=== PATIENT | male | born 1955 | race Hispanic/Latino ===

== ENCOUNTER → 2018-03-21 | Day surgery (SDC) | payer BC ==
[2018-03-18 10:42] VITALS: BMI 31.9
--- NOTE | 2018-03-18 23:48 | HP ---
DATE OF EXAM: <> REASON FOR ADMISSION: Left heart cath, possible angioplasty, abnormal stress test, preop evaluation for lung surgery. BRIEF CLINICAL HISTORY: A 62-year-old male with past medical history significant for COPD, history of degenerative joint disease, CA lung, hypertension, recently had abnormal stress test, for preop evaluation for lung resection, found to have abnormal stress test, so the patient is scheduled for elective cardiac cath, possible angioplasty. The patient denies any chest pain, shortness of breath or any palpitation. PAST MEDICAL HISTORY: Significant for COPD, hypertension, and hyperlipidemia. SOCIAL HISTORY: Used to smoke two packs a day for 30 years. Last he has cut down for half a pack. Now, the patient has stopped after he is diagnosed. Denies any history of alcohol abuse. CURRENT MEDICATIONS: The patient is taking Duo nebulizer treatment, Protonix 40 mg daily, losartan/hydrochlorothiazide combination 50/12.5 mg daily. ALLERGIES: NO KNOWN DRUG ALLERGY. REVIEW OF SYSTEMS: As per HPI. PHYSICAL EXAMINATION: As follows: VITAL SIGNS: Height of the patient is 5 feet 6 inches, weight of the patient 198 pounds, body mass index 32 kg/m2. Blood pressure 140/90, heart rate 68. HEENT: PERRLA intact. NECK: Supple. No carotid bruit or thyromegaly. CHEST: Clear to auscultation. HEART: S1, S2 regular. ABDOMEN: Soft. EXTREMITIES: Clubbing and cyanosis negative. RECENT CARDIAC WORKUP FOLLOWS: The patient had a stress test dated 03/16/2018, that revealed abnormal myocardial perfusion study, partially reversible apical defect, suspicious for ischemia. The patient had echocardiography on 03/10/2018 that showed ejection fraction 45%, diastolic dysfunction, mild mitral regurgitation, mild tricuspid regurgitation. By stress test, ejection fraction 47%, by echo 45%. IMPRESSION: A 62-year-old male with past medical history significant for hypertension, chronic obstructive pulmonary disease, lung cancer, ex-smoker. Preoperative evaluation, underwent a stress test which was abnormal, cardiomyopathy and abnormal suggestive of ischemia, inferior defect. So, the patient is scheduled for elective cardiac catheterization, possible angioplasty. We will load aspirin and Plavix. Should the patient need a stent, we will put bare-metal stent because the patient needs lung surgery. Further recommendation after the cardiac catheterization. We will follow with you. Thank you for providing us the opportunity in taking care of patient, Garrett Solitario. Katina Momin MD
[~2018-03-21] MED LIST: Bacitracin 500 Units/gm Oint Foilpak UD ONE; Bacitracin 500 Units/gm Oint Foilpak UD TOP ONE; Eptifibatide 20 mg/10mL Inj IVP ONE; Iodixanol 320 MG/ML 100 ML BOTTLE IV ONE; Iodixanol 320 MG/ML 200 ML BOTTLE IV ONE; Iohexol 350mgl/ml 50 ML ONE; Lidocaine 2% Inj (20ml) ONE; Midazolam 2 MG/2 ML VIAL ONE; Nitroglycerin 50mg in D5W 50 MG/250 ML BOTTLE IV ONE; Sodium Chloride 0.9% 1,000 ML IV SCH; Verapamil 2 ML ONE
[2018-03-21 08:16] LABS: BASO # 0.04 K/mm3 (0.0-2.0); BASO % 0.4 % (0.0-3.0); EOS # 0.5 (0.0-0.7); EOS % 4.5 % (1.5-5.0); GRAN # 6.87 (1.4-6.5); GRAN % 63.8 % (50.0-68.0); LYMPH # 2.8 (1.2-3.4); MEAN CELL VOLUME 94.9 fl (80.0-105.0); MEAN CORPUSCULAR HEMOGLOBIN 31.1 pg (25.0-35.0); MEAN CORPUSCULAR HGB CONC 32.8 g/dl (31.0-37.0); MEAN PLATELET VOLUME 9.2 fl (7.0-11.0); MONO # 0.6 (0.1-0.6); MONO % 5.3 % (1.0-6.0); RBC 4.5 10^6/uL (3.5-6.1); RED CELL DISTRIBUTION WIDTH 12.9 % (11.5-14.5); WHITE BLOOD COUNT 10.8 10^3/uL (4.5-11.0)
[2018-03-21 08:20] VITALS: RESP 18
[2018-03-21 08:28] LABS: BLOOD UREA NITROGEN 28 mg/dL (7-21); CALCIUM 9.2 mg/dL (8.4-10.5); GFR NON-AFRICAN AMERICAN > 60; HDL CHOLESTEROL 56 mg/dL (29-60); INR 0.91; PARTIAL THROMBOPLASTIN TIME 31.2 Seconds (25.1-36.5); PROTHROMBIN TIME 10.5 SECONDS (9.4-12.5)
[2018-03-21 08:39] LABS: LDL CHOLESTEROL 124 mg/dL (0-129)
--- NOTE | 2018-03-21 12:04 | CPOSTOP ---
CARDIOVASCULAR LAB POSTPROCEDURE NOTE DATE: 03/21/2018 DICTATING PHYSICIAN: Dr. Hardeep Momin. OUTPATIENT DIETITIAN: Edelmira Huddleston, mri technician. TYPE OF ANESTHESIA: Moderate conscious sedation. Total 3 mg of Versed and 150 of fentanyl given periodically. Started 1 mg of Versed and 50 of fentanyl. PRE-PROCEDURE DIAGNOSES: Unstable angina and abnormal stress test. Preoperative evaluation for lung carcinoma resection. PROCEDURE PERFORMED: Left heart catheterization. FINDINGS: LAD mid 60% stenosis. FINAL DIAGNOSES: Nonobstructive coronary artery disease and single vessel disease. POST PROCEDURE CONDITION: The patient's condition is stable. VASCULAR ACCESS SITE: Left radial. CLOSURE DEVICE: TR band. TOTAL RADIATION DOSE: 1102.0 milligray unit. FLUORO TIME: 2 minutes. Katina Momin MD
[2018-03-21 12:05] VITALS: TEMP 97.9
[2018-03-21 14:56] VITALS: O2SAT 98
[2018-03-21 14:58] VITALS: BP 123/70; PULSE 74
--- NOTE | 2018-03-21 18:38 | CARD ---
APPROVED REPORT Date of service: 03/21/2018 Procedure(s) performed: Left Heart Catheterization HISTORY The patient is a 62 year-old male with a history of : most recent EF: 47%. (EF Method: RADIONUCLIDE), chronic lung disease, tobacco history() : The patient is a former smoker , hypertension , pre-op for lung surgery abnormal stress test inferior wall ischemia. INDICATION The indication(s) include : positive stress test. CASE TECHNIQUE The patient was brought electively to the Cardiac Catheterization Laboratory in a fasting state and was prepped and draped in a sterile manner. The left wrist was infiltrated with 2% Lidocaine subcutaneous anesthesia. A 6 Fr Glidesheath (Radial Sheath Only) sheath was inserted into the left radial artery without difficulty. Coronary angiography was performed using coronary diagnostic catheters. The left coronary system was accessed and visualized with a Diagnostic , 6F JL4 CATH DXT 100 CM catheter. The right coronary system was accessed and visualized with a Diagnostic ,6F JL4 CATH DXT 100 CM catheter. The left ventricle was accessed and visualized with a 6F PIGTAIL 145 CATH DXT 110 CM catheter. Left ventricular/Aortic Valve gradient assessed on pullback. Left ventriculogram was performed in KEARNEY projection. Closure device was deployed with a Fr TR Band (Regular) without any complications. The patient tolerated the procedure well and there were no complications associated with the procedure. Vessel Analysis The patient's coronary anatomy is left dominant. The left main coronary artery is a medium size vessel . The left main bifurcates to the left anterior descending and circumflex. The left anterior descending artery is a medium size vessel with diffuse calcification noted throughout this vessel and without significant stenosis. There is a 60% stenosis in the mid segment. The first diagonal branch is a medium size vessel with diffuse calcification noted throughout this vessel and without significant stenosis. The second diagonal branch is a medium size vessel with diffuse calcification noted throughout this vessel and without significant stenosis. The circumflex artery is a large size vessel with diffuse calcification noted throughout this vessel and without significant stenosis. The first obtuse marginal branch is a small size vessel with diffuse calcification noted throughout this vessel and without significant stenosis. The second obtuse marginal branch is a medium size vessel with diffuse calcification noted throughout this vessel and without significant stenosis. The left posterior descending artery is a medium size vessel with diffuse calcification noted throughout this vessel and without significant stenosis. There is a 30% stenosis in the proximal segment. The right coronary artery is a small size vessel with diffuse calcification noted throughout this vessel and without significant stenosis. There is a 40-50% stenosis in the proximal segment. Left Ventricle The left ventricle is borderline in size with low normal contractility. The left ventricular ejection fraction is estimated to be 50-55%. The left ventricular end diastolic pressure is 15-16 mmHg. There was no gradient across the aortic valve upon pullback. Conclusion Non Obstructive CAD Limited to Mid LAD 60% and distal LAd is diffusely diseased. LVEF-50-55%, EDP-15-16 mmof hg. Recommendations Aggressive Medical TherapyCardiac Risk Reduction Program Pt. is cleared to go for Lung surgery, with moderate Risk from Cardiology point of View. F/u stress test in one year to monitor progression of CAD, pt may need stent in LAD in future. cc; Drs. Mckeon/ Peter/ Coty
== END | disposition home or self-care (01) ==
LOC: CATH 07:44
PROVIDERS: ATTEND Internal Medicine Cardiovascular Disease
DX: Z01.810 Encounter for preprocedural cardiovascular examination (principal); I25.110 Atherosclerotic heart disease of native coronary artery with unstable angina pectoris; C34.90 Malignant neoplasm of unspecified part of unspecified bronchus or lung; R94.39 Abnormal result of other cardiovascular function study; I10 Essential (primary) hypertension; J44.9 Chronic obstructive pulmonary disease, unspecified; Z87.891 Personal history of nicotine dependence; M19.90 Unspecified osteoarthritis, unspecified site; E78.5 Hyperlipidemia, unspecified; I42.9 Cardiomyopathy, unspecified
CPT/HCPCS: 36415; 80048; 80061; 85025; 85610; 85730; 86850; 86900; 93458; 99152; C1769; J1644 ×2; J1940; J2250; J3010; J7030; Q9966